=== PATIENT | male | born 1960 | race Caucasian/White ===

== ENCOUNTER → 2016-07-28 | Outpatient (REF) | payer OTHER ==
[2016-07-28 16:08] LABS: ALBUMIN 3.8 GM/DL (3.2-5.2); ALBUMIN/GLOBULIN RATIO 1.15 (1.00-1.93); ALKALINE PHOSPHATASE 99 U/L (45-117); ALT/SGPT 35 U/L (12-78); ANION GAP 8 MEQ/L (8-16); AST/SGOT 20 U/L (15-37); BILIRUBIN,TOTAL 0.8 MG/DL (0.2-1.0); BLOOD UREA NITROGEN 12 MG/DL (7-18); CALCIUM LEVEL 9.3 MG/DL (8.5-10.1); CARBON DIOXIDE LEVEL 30 MEQ/L (21-32); CHLORIDE LEVEL 103 MEQ/L (98-107); CREATININE FOR GFR 1.01 MG/DL (0.70-1.30); GLOMERULAR FILTRATION RATE > 60.0 (>56); GLUCOSE, FASTING 167 MG/DL (70-105); POTASSIUM SERUM 4.9 MEQ/L (3.5-5.1); SODIUM LEVEL 141 MEQ/L (136-145); TOTAL PROTEIN 7.1 GM/DL (6.4-8.2)
== END ==
LOC: M SFHCPLAZ 11:31
PROVIDERS: ATTEND Physician Assistant
DX: E11.9 Type 2 diabetes mellitus without complications (principal)

== ENCOUNTER → 2016-10-28 | Outpatient (REF) | payer OTHER ==
[2016-10-28 13:48] LABS: ALBUMIN 3.7 GM/DL (3.2-5.2); ALBUMIN/GLOBULIN RATIO 1.19 (1.00-1.93); ALKALINE PHOSPHATASE 109 U/L (45-117); ALT/SGPT 27 U/L (12-78); ANION GAP 7 MEQ/L (8-16); AST/SGOT 14 U/L (15-37); BILIRUBIN,TOTAL 1.5 MG/DL (0.2-1.0); BLOOD UREA NITROGEN 17 MG/DL (7-18); CALCIUM LEVEL 8.6 MG/DL (8.5-10.1); CARBON DIOXIDE LEVEL 28 MEQ/L (21-32); CHLORIDE LEVEL 100 MEQ/L (98-107); CHOLESTEROL LEVEL 98 MG/DL (<200); CREATININE FOR GFR 1.07 MG/DL (0.70-1.30); GLOMERULAR FILTRATION RATE > 60.0 (>56); GLUCOSE, FASTING 211 MG/DL (70-105); POTASSIUM SERUM 4.2 MEQ/L (3.5-5.1); SODIUM LEVEL 135 MEQ/L (136-145); TOTAL PROTEIN 6.8 GM/DL (6.4-8.2); TRIGLYCERIDES LEVEL 106 MG/DL (<150)
== END ==
LOC: M SFHCPLAZ 11:13
PROVIDERS: ATTEND Physician Assistant
DX: E11.9 Type 2 diabetes mellitus without complications (principal); E78.4 Other hyperlipidemia; Z12.5 Encounter for screening for malignant neoplasm of prostate

== ENCOUNTER → 2017-01-26 | Outpatient (REF) | payer OTHER ==
[2017-01-26 11:55] LABS: ANION GAP 5 MEQ/L (8-16); BLOOD UREA NITROGEN 13 MG/DL (7-18); CALCIUM LEVEL 9.3 MG/DL (8.5-10.1); CARBON DIOXIDE LEVEL 33 MEQ/L (21-32); CHLORIDE LEVEL 102 MEQ/L (98-107); CREATININE FOR GFR 0.99 MG/DL (0.70-1.30); GLOMERULAR FILTRATION RATE > 60.0 (>56); GLUCOSE, FASTING 120 MG/DL (70-105); POTASSIUM SERUM 4.1 MEQ/L (3.5-5.1); SODIUM LEVEL 140 MEQ/L (136-145)
[2017-01-26 11:56] LABS: ALBUMIN 3.7 GM/DL (3.2-5.2); ALBUMIN/GLOBULIN RATIO 1.09 (1.00-1.93); ALKALINE PHOSPHATASE 118 U/L (45-117); ALT/SGPT 41 U/L (12-78); AST/SGOT 20 U/L (15-37); BILIRUBIN,TOTAL 1.1 MG/DL (0.2-1.0); TOTAL PROTEIN 7.1 GM/DL (6.4-8.2)
== END ==
LOC: M LABDRAW1 11:06
PROVIDERS: ATTEND Physician Assistant
DX: E11.9 Type 2 diabetes mellitus without complications (principal)

== ENCOUNTER → 2017-06-25 | Outpatient (REF) | payer OTHER ==
[2017-06-25 12:55] LABS: ESTIMATED AVERAGE GLUCOSE 126 MG/DL (60-110)
[2017-06-25 13:03] LABS: ALBUMIN 4.1 GM/DL (3.2-5.2); ALBUMIN/GLOBULIN RATIO 1.24 (1.00-1.93); ALKALINE PHOSPHATASE 111 U/L (45-117); ALT/SGPT 36 U/L (12-78); ANION GAP 8 MEQ/L (8-16); AST/SGOT 21 U/L (7-37); BILIRUBIN,TOTAL 1.1 MG/DL (0.2-1.0); BLOOD UREA NITROGEN 18 MG/DL (7-18); CALCIUM LEVEL 9.1 MG/DL (8.5-10.1); CARBON DIOXIDE LEVEL 29 MEQ/L (21-32); CHLORIDE LEVEL 104 MEQ/L (98-107); CREATININE FOR GFR 1.17 MG/DL (0.70-1.30); GLOMERULAR FILTRATION RATE > 60.0 (>56); GLUCOSE, FASTING 81 MG/DL (70-100); POTASSIUM SERUM 4.3 MEQ/L (3.5-5.1); SODIUM LEVEL 141 MEQ/L (136-145); TOTAL PROTEIN 7.4 GM/DL (6.4-8.2)
[2017-06-25 13:18] LABS: MALB URINE SIEMENS 48.4 MG/L; MAU/CREAT RATIO 23.1 MCG/MG (0.0-30.0)
== END ==
LOC: M SFHCPLAZ 09:24
DX: E11.65 Type 2 diabetes mellitus with hyperglycemia (principal)
CPT/HCPCS: 83036

== ENCOUNTER → 2017-07-02 | Outpatient (REF) | payer OTHER ==
[2017-07-02 15:56] LABS: BILIRUBIN,DIRECT 0.3 MG/DL (0.0-0.2)
== END ==
LOC: M SFHCPLAZ 13:50
DX: R17 Unspecified jaundice (principal)
CPT/HCPCS: 36415

== ENCOUNTER 2017-09-17 07:41 | Day surgery (SDC) | payer OTHER ==
[2017-09-17] MEDS: NS 1,000 ML IV (08:30)
[2017-09-17] MEDS ORDERED: PROPOFOL 200 MG/20 ML VIAL As Ordered ×2 (08:34)
== END 2017-09-17 09:38 | disposition home or self-care (01) ==
LOC: M OPP 07:41
DX: Z12.11 Encounter for screening for malignant neoplasm of colon (principal); Z86.010 Personal history of colon polyps; Z80.0 Family history of malignant neoplasm of digestive organs; I12.9 Hypertensive chronic kidney disease with stage 1 through stage 4 chronic kidney disease, or unspecified chronic kidney disease; E78.5 Hyperlipidemia, unspecified; E11.9 Type 2 diabetes mellitus without complications; N18.9 Chronic kidney disease, unspecified; Z79.899 Other long term (current) drug therapy; Z79.4 Long term (current) use of insulin
CPT/HCPCS: 45378

== ENCOUNTER 2017-10-05 08:47 | Day surgery (SDC) | payer OTHER ==
[2017-10-05] MEDS ORDERED: NS 1,000 ML IV (09:15)
[2017-10-05] MEDS ORDERED: PROPOFOL 500 MG/50 ML VIAL As Ordered (10:00)
[2017-10-05] MEDS ORDERED: LIDOCAINE 2% INJ 100 MG/5 ML SDV (FOR ANES.) As Ordered (10:00)
== END 2017-10-05 10:59 | disposition home or self-care (01) ==
LOC: M OPP 08:47
DX: Z12.11 Encounter for screening for malignant neoplasm of colon (principal); Z85.038 Personal history of other malignant neoplasm of large intestine; Z86.010 Personal history of colon polyps; D12.3 Benign neoplasm of transverse colon; K57.30 Diverticulosis of large intestine without perforation or abscess without bleeding; K64.8 Other hemorrhoids; I12.9 Hypertensive chronic kidney disease with stage 1 through stage 4 chronic kidney disease, or unspecified chronic kidney disease; E11.9 Type 2 diabetes mellitus without complications; N18.2 Chronic kidney disease, stage 2 (mild); Z80.0 Family history of malignant neoplasm of digestive organs; Z79.4 Long term (current) use of insulin; Z79.899 Other long term (current) drug therapy
CPT/HCPCS: 45385

== ENCOUNTER → 2017-11-17 | Outpatient (CLI) | payer OTHER | LOC: M RAD 11:27 | DX: N18.9 Chronic kidney disease, unspecified (principal); E11.9 Type 2 diabetes mellitus without complications | CPT/HCPCS: 76775 ==

== ENCOUNTER → 2018-01-06 | Outpatient (REF) | payer OTHER ==
[2018-01-06 15:57] LABS: ESTIMATED AVERAGE GLUCOSE 180 MG/DL (60-110); HEMOGLOBIN A1c 7.9 %
== END ==
LOC: M SFHCPLAZ 14:45
DX: E11.9 Type 2 diabetes mellitus without complications (principal)

== ENCOUNTER → 2018-08-19 | Outpatient (REF) | payer OTHER ==
[~2018-08-19] MED LIST: ATOR40TA75 PO; BASA100I SC; METF500T13 PO; MULT1TAB10 PO; VALS320T PO; VICT18IN SC
[2018-08-19 17:19] LABS: MAU/CREAT RATIO 95.2 MCG/MG (0.0-30.0)
[2018-08-19 17:32] LABS: BLOOD UREA NITROGEN 19 MG/DL (7-18); CALCIUM LEVEL 9.1 MG/DL (8.5-10.1); CARBON DIOXIDE LEVEL 29 MEQ/L (21-32); CHLORIDE LEVEL 102 MEQ/L (98-107); CHOLESTEROL LEVEL 105 MG/DL (<200); CREATININE FOR GFR 1.31 MG/DL (0.70-1.30); GLOMERULAR FILTRATION RATE > 60.0 (>56); GLUCOSE, FASTING 164 MG/DL (70-100); HDL CHOLESTEROL 41 MG/DL (>40); LDL CHOLESTEROL 44 MG/DL (<100); NON-HDL-C 64 MG/DL; SODIUM LEVEL 138 MEQ/L (136-145); TRIGLYCERIDES LEVEL 98 MG/DL (<150)
[2018-08-19 17:45] LABS: HEMOGLOBIN A1c 10.1 %
== END ==
LOC: M SFHCPLAZ 14:31
PROVIDERS: ATTEND Family Medicine
DX: E11.65 Type 2 diabetes mellitus with hyperglycemia (principal); E78.5 Hyperlipidemia, unspecified

== ENCOUNTER → 2018-12-23 | Outpatient (REF) | payer OTHER ==
[2018-12-23 13:31] LABS: CALCIUM LEVEL 9.1 MG/DL (8.5-10.1); CREATININE FOR GFR 1.57 MG/DL (0.70-1.30); GLOMERULAR FILTRATION RATE 48.9 (>56)
[2018-12-23 14:11] LABS: HEMOGLOBIN A1c 8.7 %
== END ==
LOC: M SFHCPLAZ 10:01
PROVIDERS: ATTEND Family Medicine
DX: E11.65 Type 2 diabetes mellitus with hyperglycemia (principal)

== ENCOUNTER → 2019-02-16 | Outpatient (REF) ==
--- NOTE | 2019-02-16 13:44 | REP ---
Lumbar spine three views: There are no comparisons. Vertebral body heights and alignment are normal. There is mild disc space narrowing and there are bridging anterior osteophytes throughout the lumbar spine compatible with degenerative disc disease. There is no spondylolysis or spondylolisthesis. The pedicles and facets are unremarkable. Sacroiliac articulations are unremarkable. Impression: Degenerative disc disease at every lumbar level. Otherwise, negative lumbar spine. Electronically Signed by Duncan Chavez MD 02/16/2019 01:35 P
== END ==
LOC: M SMT 10:39
PROVIDERS: ATTEND Internal Medicine
DX: Z02.71 Encounter for disability determination (principal)

== ENCOUNTER → 2019-05-24 | Outpatient (REF) | payer OTHER ==
[2019-05-24 15:23] LABS: HEMOGLOBIN A1c 7.2 %
== END ==
LOC: M SFHCPLAZ 10:38
PROVIDERS: ATTEND Family Medicine
DX: E11.65 Type 2 diabetes mellitus with hyperglycemia (principal)

== ENCOUNTER → 2019-11-01 | Outpatient (REF) | payer OTHER ==
[~2019-11-01] MED LIST changes: +LOSA100T50 PO; +MULTCAP PO; +TRUL0.5I SC; -VALS320T PO; +VALS320T2 PO
[2019-11-01 13:29] LABS: CALCIUM LEVEL 8.7 MG/DL (8.5-10.1); CHOLESTEROL RISK RATIO 3.5 (<5); CREATININE FOR GFR 1.5 MG/DL (0.70-1.30); GLOMERULAR FILTRATION RATE 51.5 (>56); POTASSIUM SERUM 4.2 MEQ/L (3.5-5.1)
[2019-11-01 14:54] LABS: HEMOGLOBIN A1c 6.2 %
== END ==
LOC: M SFHCPLAZ 10:35
PROVIDERS: ATTEND Internal Medicine
DX: E11.65 Type 2 diabetes mellitus with hyperglycemia (principal); I10 Essential (primary) hypertension

== ENCOUNTER → 2020-02-05 | Outpatient (CLI) | payer OTHER | LOC: M LABSMTC 07:57 | PROVIDERS: ATTEND Anesthesiology | DX: Z01.812 Encounter for preprocedural laboratory examination (principal); Z20.828 Contact with and (suspected) exposure to other viral communicable diseases | CPT/HCPCS: C9803; U0003 ==

== ENCOUNTER 2020-02-10 07:14 | Day surgery (SDC) | payer OTHER ==
[~2020-02-10] VITALS: Ht 180.3 cm; Wt 92.0 kg
[~2020-02-10 07:14] MED LIST changes: +NS 1,000 ML IV ONE
[2020-02-10] MEDS ORDERED: GLUCAGON INJ 1MG VIAL As Ordered ONE (08:17)
[2020-02-10] MEDS ORDERED: propofoL 200 MG/20 ML VIAL As Ordered ONE (08:42)
--- NOTE | 2020-02-10 08:44 | ROOR ---
Patient Name: Butch Odell Procedure Date: 02/10/2020 7:56 AM Date of : 1960 Age: 59 Room: [id number] Gender: Male Note Status: Finalized Procedure: Colonoscopy Indications: High risk colon cancer surveillance: Personal history of colonic polyps, Family history of colon cancer Providers: Stew ENCINAS MD Referring MD: Gunnar Carney Do, [facility] [place] Requesting Provider: Medicines: Monitored Anesthesia Care Complications: No immediate complications. Procedure: Pre-Anesthesia Assessment: - The heart rate, respiratory rate, oxygen saturations, blood pressure, adequacy of pulmonary ventilation, and response to care were monitored throughout the procedure. The Colonoscope was introduced through the anus and advanced to the cecum, identified by appendiceal orifice and ileocecal valve. The colonoscopy was performed without difficulty. The patient tolerated the procedure well. The quality of the bowel preparation was fair. Findings: The perianal and digital rectal examinations were normal. A 10 mm polypoid lesion was found at the ileocecal valve. The lesion was sessile. The polyp was removed with a piecemeal technique using a cold snare. Resection and retrieval were complete. A 4 mm polyp was found in the appendiceal orifice. The polyp was sessile. The polyp was removed with a cold snare. Resection and retrieval were complete. A 5 mm polyp was found in the splenic flexure. The polyp was sessile. The polyp was removed with a cold snare. Resection and retrieval were complete. A 5 mm polyp was found in the sigmoid colon. The polyp was sessile. The polyp was removed with a cold snare. Resection and retrieval were complete. Multiple medium-mouthed diverticula were found in the sigmoid colon. The exam was otherwise without abnormality on direct and retroflexion views. Impression: - Preparation of the colon was fair. - A 10-12 mm semisessile polyp at the ileocecal valve. Visually complete removal was accomplished with piecemeal technique. - One 4 mm polyp at the appendiceal orifice, removed with a cold snare. Resected and retrieved. - One 5 mm polyp at the splenic flexure, removed with a cold snare. Resected and retrieved. - One 5 mm polyp in the sigmoid colon, removed with a cold snare. Resected and retrieved. - Diverticulosis in the sigmoid colon. - The examination was otherwise normal on direct and retroflexion views. Recommendation: - Await pathology results. - If the polyp located on the underside of ileocecal valve (difficult access) is adenomatous, then would recommend repeat colonoscopy in 1-2 years. If this is not adenomatous, then can wait 3 years for repeat colonoscopy. - Telephone endoscopist for pathology results in 2 weeks. Stew Encinas MD Stew ENCINAS MD 02/10/2020 8:43:42 AM Electronically signed by Stew ENCINAS MD Number of Addenda: 0 Note Initiated On: 02/10/2020 7:56 AM Estimated Blood Loss: Estimated blood loss: none.
[2020-02-10 09:09] VITALS: BP 115/61
== END 2020-02-10 09:35 | disposition home or self-care (01) ==
LOC: M OPP 07:14
PROVIDERS: ATTEND Internal Medicine Gastroenterology
DX: Z12.11 Encounter for screening for malignant neoplasm of colon (principal); Z86.010 Personal history of colon polyps; Z80.0 Family history of malignant neoplasm of digestive organs; D12.0 Benign neoplasm of cecum; D12.3 Benign neoplasm of transverse colon; D12.5 Benign neoplasm of sigmoid colon; K57.30 Diverticulosis of large intestine without perforation or abscess without bleeding; I12.9 Hypertensive chronic kidney disease with stage 1 through stage 4 chronic kidney disease, or unspecified chronic kidney disease; E11.9 Type 2 diabetes mellitus without complications; N18.2 Chronic kidney disease, stage 2 (mild); Z79.84 Long term (current) use of oral hypoglycemic drugs; Z79.899 Other long term (current) drug therapy
CPT/HCPCS: 45385; 88305; J1610

== ENCOUNTER → 2020-04-19 | Outpatient (REF) | payer OTHER ==
[~2020-04-19] MED LIST changes: -NS 1,000 ML IV ONE
[2020-04-19 15:07] LABS: BASO % 0.3 % (0.0-1.0); EOS # 0.2 10^3/uL (0.0-0.5); EOS % 1.5 % (0.0-3.0); HEMATOCRIT 51.2 % (42.0-52.0); LYMPH # 1.6 10^3/uL (1.5-5.0); LYMPH % 16.1 % (24.0-44.0); MEAN CORPUSCULAR HGB CONC 33.2 g/dl (32.0-36.5); MEAN CORPUSCULAR VOLUME 90.5 fl (80.0-96.0); MONO # 0.6 10^3/uL (0.0-0.8); MONO % 6.5 % (0.0-5.0); NEUTROPHILS # 7.4 10^3/uL (1.5-8.5); NEUTROPHILS % 75.4 % (36.0-66.0); PLATELET COUNT, AUTOMATED 201 10^3/uL (150-450); RED BLOOD COUNT 5.66 10^6/uL (4.30-6.10); WHITE BLOOD COUNT 9.8 10^3/uL (4.0-10.0)
[2020-04-19 17:22] LABS: ALBUMIN 4.2 GM/DL (3.2-5.2); BILIRUBIN,TOTAL 1.8 MG/DL (0.2-1.0); CALCIUM LEVEL 9.6 MG/DL (8.5-10.1); CREATININE FOR GFR 1.68 MG/DL (0.70-1.30); FREE T4 1.19 NG/DL (0.76-1.46); GLOMERULAR FILTRATION RATE 45.1 (>56); POTASSIUM SERUM 4.7 MEQ/L (3.5-5.1); THYROID STIMULATING HORMONE 0.937 uIU/ML (0.358-3.740); TOTAL PROTEIN 7.7 GM/DL (6.4-8.2)
[2020-04-19 20:11] LABS: HEMOGLOBIN A1c 6.3 %
== END ==
LOC: M PLALAB 11:30
PROVIDERS: ATTEND Student in an Organized Health Care Education/Training Program
DX: R53.83 Other fatigue (principal); E11.21 Type 2 diabetes mellitus with diabetic nephropathy

== ENCOUNTER → 2020-06-06 | Outpatient (REF) | payer OTHER ==
[2020-06-06 14:38] LABS: ALBUMIN 4.2 GM/DL (3.2-5.2); ALT/SGPT 24 U/L (12-78); BILIRUBIN,TOTAL 1.7 MG/DL (0.2-1.0); BLOOD UREA NITROGEN 19 MG/DL (7-18); CALCIUM LEVEL 9.9 MG/DL (8.5-10.1); CARBON DIOXIDE LEVEL 32 MEQ/L (21-32); CHLORIDE LEVEL 105 MEQ/L (98-107); CREATININE FOR GFR 1.16 MG/DL (0.70-1.30); GLOMERULAR FILTRATION RATE > 60.0 (>56); GLUCOSE, FASTING 67 MG/DL (70-100); POTASSIUM SERUM 4.3 MEQ/L (3.5-5.1); SODIUM LEVEL 142 MEQ/L (136-145); TOTAL PROTEIN 7.4 GM/DL (6.4-8.2)
[2020-06-06 14:54] LABS: MAU/CREAT RATIO 65.3 MCG/MG (0.0-30.0)
[2020-06-06 14:58] LABS: HEPATITIS B SURFACE ANTIGEN NEGATIVE (NEGATIVE)
== END ==
LOC: M SFHCPLAZ 11:02
PROVIDERS: ATTEND Family Medicine
DX: E11.65 Type 2 diabetes mellitus with hyperglycemia (principal); E80.6 Other disorders of bilirubin metabolism
CPT/HCPCS: 36415; 80053; 82043; 86803; 87340; G0463

== ENCOUNTER → 2020-12-03 | Outpatient (CLI) | payer OTHER ==
[2020-12-03 14:09] LABS: MAU/CREAT RATIO 104.7 MCG/MG (0.0-30.0)
[2020-12-03 14:14] LABS: HEMOGLOBIN A1c 6.1 %
[2020-12-03 14:18] LABS: CHOLESTEROL RISK RATIO 2.461 (<5)
== END ==
LOC: M PLALAB 10:01
PROVIDERS: ATTEND Family Medicine
DX: E11.65 Type 2 diabetes mellitus with hyperglycemia (principal)

== ENCOUNTER → 2021-02-26 | Outpatient (REF) | payer OTHER | LOC: M LAB REF 13:53 | PROVIDERS: ATTEND Internal Medicine Nephrology | DX: E83.42 Hypomagnesemia (principal) ==

== ENCOUNTER → 2021-03-26 | Outpatient (CLI) | payer OTHER ==
[2021-03-26 14:38] LABS: BASO % 0.4 % (0.0-1.0); EOS # 0.2 10^3/uL (0.0-0.5); EOS % 2.9 % (0.0-3.0); HEMATOCRIT 52.1 % (42.0-52.0); HEMOGLOBIN 17.1 g/dl (13.5-17.5); LYMPH # 1.4 10^3/uL (1.5-5.0); LYMPH % 19.4 % (24.0-44.0); MEAN CORPUSCULAR HGB CONC 32.8 g/dl (32.0-36.5); MEAN CORPUSCULAR VOLUME 88.5 fl (80.0-96.0); MONO # 0.5 10^3/uL (0.0-0.8); MONO % 6.6 % (2.0-8.0); NEUTROPHILS # 5.1 10^3/uL (1.5-8.5); NEUTROPHILS % 70.4 % (36.0-66.0); PLATELET COUNT, AUTOMATED 183 10^3/uL (150-450); RED BLOOD COUNT 5.89 10^6/uL (4.30-6.10); WHITE BLOOD COUNT 7.3 10^3/uL (4.0-10.0)
[2021-03-26 14:49] LABS: ALBUMIN 3.8 GM/DL (3.2-5.2); BILIRUBIN,TOTAL 1.8 MG/DL (0.2-1.0); CALCIUM LEVEL 9.7 MG/DL (8.5-10.1); CHOLESTEROL RISK RATIO 3.086 (<5); CREATININE FOR GFR 1.35 MG/DL (0.70-1.30); GLOMERULAR FILTRATION RATE 57.8 (>56); POTASSIUM SERUM 4.4 MEQ/L (3.5-5.1); TOTAL PROTEIN 7.5 GM/DL (6.4-8.2)
[2021-03-26 15:04] LABS: CREATININE, URINE 76.4 MG/DL; CREATININE,RANDOM URINE 76.4 MG/DL; MAU/CREAT RATIO 280.1 MCG/MG (0.0-30.0)
[2021-03-26 19:42] LABS: HEMOGLOBIN A1c 6.3 %
== END ==
LOC: M PLALAB 10:36
PROVIDERS: ATTEND Student in an Organized Health Care Education/Training Program
DX: E11.9 Type 2 diabetes mellitus without complications (principal); I10 Essential (primary) hypertension

== ENCOUNTER → 2021-06-10 | Outpatient (CLI) | payer OTHER ==
[~2021-06-10] MED LIST changes: +INSULADS SC; +JARD1TAB PO; +LOSA100T45 PO; -LOSA100T50 PO; +VITMTA PO
== END ==
LOC: M LABSMTC 12:04
PROVIDERS: ATTEND Anesthesiology
DX: Z01.812 Encounter for preprocedural laboratory examination (principal); Z20.822 Contact with and (suspected) exposure to COVID-19

== ENCOUNTER 2021-06-14 06:46 | Day surgery (SDC) | payer OTHER ==
[~2021-06-14] VITALS: Ht 180.3 cm; Wt 85.2 kg
[~2021-06-14 06:46] MED LIST changes: +NS 1,000 ML IV ONE
[2021-06-14] MEDS ORDERED: propofoL 200 MG/20 ML VIAL As Ordered ONE (07:08)
[2021-06-14] MEDS ORDERED: LIDOCAINE 2% 100MG/5ML SDV (FOR ANES.) As Ordered ONE (07:08)
[2021-06-14 09:20] VITALS: BP 130/77
== END 2021-06-14 09:45 | disposition home or self-care (01) ==
LOC: M OPP 06:46
PROVIDERS: ATTEND Internal Medicine Gastroenterology
DX: D12.3 Benign neoplasm of transverse colon (principal); D12.5 Benign neoplasm of sigmoid colon; Z98.890 Other specified postprocedural states; K57.30 Diverticulosis of large intestine without perforation or abscess without bleeding; K64.8 Other hemorrhoids; Z86.010 Personal history of colon polyps; Z09 Encounter for follow-up examination after completed treatment for conditions other than malignant neoplasm; Z80.0 Family history of malignant neoplasm of digestive organs; Z79.4 Long term (current) use of insulin; Z79.899 Other long term (current) drug therapy

== ENCOUNTER → 2022-04-21 | Outpatient (CLI) | payer MEDICARE, OTHER ==
[~2022-04-21] MED LIST changes: -NS 1,000 ML IV ONE
== END ==
LOC: M LABSMTC 09:57
PROVIDERS: ATTEND Anesthesiology
DX: Z01.812 Encounter for preprocedural laboratory examination (principal); Z20.822 Contact with and (suspected) exposure to COVID-19

== ENCOUNTER 2022-04-24 07:27 | Day surgery (SDC) | payer MEDICARE ==
[~2022-04-24] VITALS: Ht 180.3 cm; Wt 96.5 kg
[~2022-04-24 07:27] MED LIST changes: +NS 1,000 ML IV ONE
[2022-04-24] MEDS ORDERED: propofoL 200 MG/20 ML VIAL As Ordered ONE (08:51)
[2022-04-24] MEDS ORDERED: GLUCAGON INJ 1MG VIAL As Ordered ONE (08:51)
[2022-04-24 09:36] VITALS: BP 139/75
== END 2022-04-24 09:38 | disposition home or self-care (01) ==
LOC: M OPP 07:27
PROVIDERS: ATTEND Internal Medicine Gastroenterology
DX: Z86.010 Personal history of colon polyps (principal); Z80.0 Family history of malignant neoplasm of digestive organs; Z98.890 Other specified postprocedural states; K63.89 Other specified diseases of intestine; K52.89 Other specified noninfective gastroenteritis and colitis; Z79.02 Long term (current) use of antithrombotics/antiplatelets; Z79.4 Long term (current) use of insulin; I12.9 Hypertensive chronic kidney disease with stage 1 through stage 4 chronic kidney disease, or unspecified chronic kidney disease; E11.9 Type 2 diabetes mellitus without complications; N18.2 Chronic kidney disease, stage 2 (mild); Q87.89 Other specified congenital malformation syndromes, not elsewhere classified; Z80.49 Family history of malignant neoplasm of other genital organs
CPT/HCPCS: 45380; 88305; J1610

== ENCOUNTER → 2022-07-29 | Outpatient (REF) | payer MEDICARE ==
[~2022-07-29] MED LIST changes: -NS 1,000 ML IV ONE
[2022-07-29 17:39] LABS: ALBUMIN 3.7 G/DL (3.2-5.2); ALKALINE PHOSPHATASE 87 U/L (46-116); ALT/SGPT 30 U/L (7.0-40); AST/SGOT 21 U/L (<34); BILIRUBIN,TOTAL 1.1 MG/DL (0.3-1.2); BLOOD UREA NITROGEN 20 MG/DL (9-23); CALCIUM LEVEL 9.8 MG/DL (8.5-10.1); CARBON DIOXIDE LEVEL 31 MMOL/L (20-31); CHLORIDE LEVEL 102 MMOL/L (98-107); CHOLESTEROL LEVEL 125 MG/DL (<200); CREATININE FOR GFR 1.18 MG/DL (0.70-1.30); GLOMERULAR FILTRATION RATE > 60.0 (>56); GLUCOSE, FASTING 200 MG/DL (60-100); LDL CHOLESTEROL 60.2 MG/DL (<100); POTASSIUM SERUM 5.2 MMOL/L (3.5-5.1); SODIUM LEVEL 137 MMOL/L (136-145); TOTAL PROTEIN 6.8 G/DL (5.7-8.2); TRIGLYCERIDES LEVEL 84 MG/DL (<150)
[2022-07-29 17:40] LABS: THYROID STIMULATING HORMONE 2.248 uIU/ML (0.55-4.78)
== END ==
LOC: M LAB REF 16:21
PROVIDERS: ATTEND Family Medicine Addiction Medicine
DX: E11.9 Type 2 diabetes mellitus without complications (principal)

== ENCOUNTER → 2022-09-04 | Outpatient (REF) | payer MEDICARE ==
[2022-09-04 14:07] LABS: BLOOD UREA NITROGEN 23 MG/DL (9-23); CARBON DIOXIDE LEVEL 27 MMOL/L (20-31); CHLORIDE LEVEL 100 MMOL/L (98-107); CREATININE FOR GFR 1.19 MG/DL (0.70-1.30); GLOMERULAR FILTRATION RATE > 60.0 (>56); GLUCOSE, FASTING 459 MG/DL (60-100); POTASSIUM SERUM 5.3 MMOL/L (3.5-5.1); SODIUM LEVEL 132 MMOL/L (136-145)
== END ==
LOC: M LAB REF 12:32
PROVIDERS: ATTEND Family Medicine Addiction Medicine
DX: E87.5 Hyperkalemia (principal)

== ENCOUNTER → 2022-10-15 | Outpatient (REF) | payer MEDICARE ==
[~2022-10-15] MED LIST changes: -LOSA100T45 PO; +LOSA100T46 PO
[2022-10-15 17:56] LABS: THYROID STIMULATING HORMONE 1.303 uIU/ML (0.55-4.78)
[2022-10-15 17:57] LABS: ALBUMIN 3.6 G/DL (3.2-5.2); ALKALINE PHOSPHATASE 116 U/L (46-116); ALT/SGPT 30 U/L (7.0-40); AST/SGOT 20 U/L (<34); BILIRUBIN,TOTAL 1.3 MG/DL (0.3-1.2); BLOOD UREA NITROGEN 24 MG/DL (9-23); CALCIUM LEVEL 8.4 MG/DL (8.5-10.1); CARBON DIOXIDE LEVEL 27 MMOL/L (20-31); CHLORIDE LEVEL 102 MMOL/L (98-107); CHOLESTEROL LEVEL 113 MG/DL (<200); CHOLESTEROL RISK RATIO 2.77 (<5); CREATININE FOR GFR 1.26 MG/DL (0.70-1.30); GLOMERULAR FILTRATION RATE > 60.0 (>56); GLUCOSE, FASTING 249 MG/DL (60-100); HDL CHOLESTEROL 40.7 MG/DL (>40); LDL CHOLESTEROL 55.9 MG/DL (<100); NON-HDL-C 72.3 MG/DL; POTASSIUM SERUM 5.3 MMOL/L (3.5-5.1); SODIUM LEVEL 135 MMOL/L (136-145); TOTAL PROTEIN 6.5 G/DL (5.7-8.2); TRIGLYCERIDES LEVEL 82 MG/DL (<150)
[2022-10-15 18:13] LABS: HEMOGLOBIN A1c 11.2 % (4.0-6.0)
== END ==
LOC: M LAB REF 16:34
PROVIDERS: ATTEND Family Medicine Addiction Medicine
DX: E11.9 Type 2 diabetes mellitus without complications (principal)

== ENCOUNTER → 2023-04-06 | Outpatient (REF) | payer MEDICARE ==
[2023-04-06 14:25] LABS: ALBUMIN 3.6 G/DL (3.2-5.2); BILIRUBIN,TOTAL 0.8 MG/DL (0.3-1.2); CHOLESTEROL RISK RATIO 3.1 (<5); CREATININE FOR GFR 1.35 MG/DL (0.70-1.30); GLOMERULAR FILTRATION RATE 57.4 (>49); HDL CHOLESTEROL 45.4 MG/DL (>40); LDL CHOLESTEROL 67.2 MG/DL (<100); NON-HDL-C 95.6 MG/DL; POTASSIUM SERUM 5.1 MMOL/L (3.5-5.1); TOTAL PROTEIN 6.8 G/DL (5.7-8.2)
[2023-04-06 14:27] LABS: THYROID STIMULATING HORMONE 2.606 uIU/ML (0.55-4.78)
== END ==
LOC: M LAB REF 13:09
PROVIDERS: ATTEND Family Medicine Addiction Medicine
DX: E11.9 Type 2 diabetes mellitus without complications (principal)

== ENCOUNTER → 2023-11-10 | Outpatient (REF) | payer MEDICARE, MEDICAID ==
[2023-11-10 12:24] LABS: CREATININE, URINE 145.2 MG/DL
[2023-11-10 12:36] LABS: MAU/CREAT RATIO 561.9 MCG/MG (0.0-30.0)
[2023-11-10 19:15] LABS: ALBUMIN 3.5 G/DL (3.2-5.2); ALKALINE PHOSPHATASE 104 U/L (46-116); ALT/SGPT 33 U/L (7.0-40); AST/SGOT 17 U/L (<34); BILIRUBIN,TOTAL 0.8 MG/DL (0.3-1.2); BLOOD UREA NITROGEN 19 MG/DL (9-23); CALCIUM LEVEL 9.5 MG/DL (8.3-10.6); CARBON DIOXIDE LEVEL 28 MMOL/L (20-31); CHLORIDE LEVEL 98 MMOL/L (98-107); CHOLESTEROL LEVEL 144 MG/DL (<200); CHOLESTEROL RISK RATIO 3.69 (<5); CREATININE FOR GFR 1.24 MG/DL (0.70-1.30); GLOMERULAR FILTRATION RATE > 60.0 (>49); GLUCOSE, FASTING 265 MG/DL (74-106); POTASSIUM SERUM 3.9 MMOL/L (3.5-5.1); SODIUM LEVEL 132 MMOL/L (136-145); TOTAL PROTEIN 6.5 G/DL (5.7-8.2); TRIGLYCERIDES LEVEL 125 MG/DL (<150)
[2023-11-10 19:16] LABS: THYROID STIMULATING HORMONE 2.831 uIU/ML (0.55-4.78)
[2023-11-10 19:21] LABS: HEMOGLOBIN A1c 11.9 % (4.0-6.0)
== END ==
LOC: M LAB REF 11:16
PROVIDERS: ATTEND Family Medicine Addiction Medicine
DX: E11.9 Type 2 diabetes mellitus without complications (principal)

== ENCOUNTER → 2023-12-24 | Outpatient (REF) | payer MEDICARE, MEDICAID ==
[2023-12-24 17:41] LABS: TOTAL PROTEIN,RANDOM URINE 63.6 MG/DL (0.0-14.0)
[2023-12-24 17:46] LABS: CREATININE,RANDOM URINE 89.7 MG/DL
== END ==
LOC: M LAB REF 16:53
PROVIDERS: ATTEND Internal Medicine Nephrology
DX: R80.9 Proteinuria, unspecified (principal)

== ENCOUNTER → 2025-03-07 | Outpatient (REF) | payer MEDICARE, MEDICAID ==
[~2025-03-07] MED LIST changes: +LOSA100T5 PO; +MULT-90 PO
[2025-03-07 17:09] LABS: ESTIMATED AVERAGE GLUCOSE 318.0 MG/DL (60-110)
[2025-03-07 19:03] LABS: ALT/SGPT 37.0 U/L (7.0-40); AST/SGOT 24.0 U/L (<34); CALCIUM LEVEL 9.7 MG/DL (8.3-10.6); CARBON DIOXIDE LEVEL 31.0 MMOL/L (20-31); CHLORIDE LEVEL 90.0 MMOL/L (98-107); CHOLESTEROL LEVEL 184.0 MG/DL (<200); CHOLESTEROL RISK RATIO 3.86 (<5); CREATININE FOR GFR 1.37 MG/DL (0.70-1.30); GLOMERULAR FILTRATION RATE 58.3 (>49); LDL CHOLESTEROL 70.0 MG/DL (<100); NON-HDL-C 136.4 MG/DL; POTASSIUM SERUM 5.9 MMOL/L (3.5-5.1); SODIUM LEVEL 131.0 MMOL/L (136-145); TRIGLYCERIDES LEVEL 332.0 MG/DL (<150)
== END ==
LOC: M LAB REF 16:17
PROVIDERS: ATTEND Family Medicine Addiction Medicine
DX: E11.9 Type 2 diabetes mellitus without complications (principal)

== ENCOUNTER 2025-03-13 09:52 | Day surgery (SDC) | payer MEDICARE, MEDICAID ==
[~2025-03-13] VITALS: Ht 180.3 cm; Wt 88.0 kg
[2025-03-13] MEDS ORDERED: DEXTROSE 50% 50 ML SYRINGE IV PRN (10:35)
[2025-03-13] MEDS ORDERED: GLUCOSE 4 GM CHEW PO PRN (10:35)
[2025-03-13] MEDS ORDERED: GLUCAGON INJ 1 MG VIAL SC PRN (10:35)
[2025-03-13] MEDS: INSULIN LISPRO (NovoLOG) PER UNIT SC PRN (10:41)
[2025-03-13] MEDS ORDERED: LIDOCAINE 2% 100 MG/5 ML SDV (FOR ANES.) As Ordered ONE (10:59)
[2025-03-13] MEDS ORDERED: GLYCOPYRROLATE INJ 0.2 MG/ML 2 ML VIAL As Ordered ONE (10:59)
[2025-03-13 11:27] VITALS: TEMP 97.2
[2025-03-13 12:00] VITALS: BP 139/80; O2SAT 97
== END 2025-03-13 12:15 | disposition home or self-care (01) ==
LOC: M OPP 09:52
PROVIDERS: ATTEND Internal Medicine Gastroenterology
DX: D12.3 Benign neoplasm of transverse colon (principal); K57.30 Diverticulosis of large intestine without perforation or abscess without bleeding; K64.8 Other hemorrhoids; Z86.0100 Personal history of colon polyps, unspecified; Z80.0 Family history of malignant neoplasm of digestive organs; Z79.4 Long term (current) use of insulin; Z79.84 Long term (current) use of oral hypoglycemic drugs; Z79.85 Long-term (current) use of injectable non-insulin antidiabetic drugs; Z79.899 Other long term (current) drug therapy
CPT/HCPCS: 45385; 88305; J1596; J1815

== ENCOUNTER → 2025-04-04 | Outpatient (REF) | payer MEDICARE, MEDICAID ==
[2025-04-04 16:00] LABS: ALT/SGPT 25.0 U/L (7.0-40); AST/SGOT 20.0 U/L (<34); CALCIUM LEVEL 8.6 MG/DL (8.3-10.6); CARBON DIOXIDE LEVEL 28.0 MMOL/L (20-31); CHLORIDE LEVEL 93.0 MMOL/L (98-107); CREATININE FOR GFR 1.52 MG/DL (0.70-1.30); GLOMERULAR FILTRATION RATE 51.5 (>49); POTASSIUM SERUM 5.1 MMOL/L (3.5-5.1); SODIUM LEVEL 132.0 MMOL/L (136-145)
== END ==
LOC: M LAB REF 14:45
PROVIDERS: ATTEND Family Medicine Addiction Medicine
DX: E11.9 Type 2 diabetes mellitus without complications (principal); Z79.4 Long term (current) use of insulin